=== PATIENT | female | born 1985 | race Caucasian/White ===

== ENCOUNTER → 2021-11-29 12:30 | Outpatient (CLI) | payer BC, SELFPAY ==
--- NOTE | 2021-11-29 12:33 | DI.US.S_ITS ---
PROCEDURE: US OB <= 14 WEEKS FETUS INDICATIONS: SIZE AND DATES. OUTSIDE/PRIOR DATING DATA: Last menstrual period (LMP): September 16, 2021 LMP-based estimated date of delivery (MARTA): June 23, 2022 First dating scan (date and location): November 29, 2021 Estimated date of delivery (MARTA) from first dating scan: June 25, 2022 The calculations are made using the ultrasound MARTA of June 25, 2022 TECHNIQUE: Real-time scanning was performed of the fetus and maternal pelvic organs, with image documentation. Endovaginal scanning was also performed to better visualize the fetus and maternal ovaries. COMPARISON: None. FINDINGS: Embryo: Single living intrauterine identified. pole identified. Verlot-rump length measures 3.4 centimeters corresponding to ultrasound estimated gestational age of 10 weeks 2 days. Heart rate: 165 beats per minute. Maternal organs: Probable left corpus luteal cyst. IMPRESSION: Single living intrauterine with ultrasound estimated gestational age of 10 weeks 2 days corresponding to ultrasound MARTA of June 25, 2022. Dictated by: Aretha Cheung MD, PhD on 11/29/2021 at 14:25 Approved by: Aretha Cheung MD, PhD on 11/29/2021 at 14:27
== END ==
PROVIDERS: PCP Family Medicine; Referring Provider Family Medicine; Visit Provider Family Medicine
DX: Z36.87 Encounter for antenatal screening for uncertain dates (principal); Z3A.10 10 weeks gestation of pregnancy
CPT/HCPCS: 76801; 76817

== ENCOUNTER → 2022-02-14 07:33 | Outpatient (CLI) | payer BC, SELFPAY ==
--- NOTE | 2022-02-14 | DI.US.S_ITS ---
PROCEDURE: US OB >= 14 WEEKS FETUS INDICATIONS: 20 WEEK ANATOMY OUTSIDE/PRIOR DATING DATA: Last menstrual period (LMP): 09/16/2021. LMP-based estimated date of delivery (MARTA): 06/23/2022. First dating scan (date and location): 11/29/2021. Estimated date of delivery (MARTA) from first dating scan: 06/25/2022. TECHNIQUE: Real-time scanning was performed of the fetus, with image documentation and biometric measurements. COMPARISON: None. FINDINGS: General: A single living intrauterine gestation is present. Presentation: Breech. Placenta: Placental position is posterior , without previa. Amniotic fluid index: 13.5 cm, normal range is 5-24 cm. heart rate: 145 beats per minute. Maternal cervical canal: 5.1 cm long. Normal lower limit is 2.5 cm. biometrics: Biparietal diameter: 5.1 cm, 21 week 3 day Head circumference: 19.3 cm, 21 week 4 day Abdominal circumference: 15.7 cm, 20 week 6 day Femur length: 3.4 cm, 20 week 6 day Clinically estimated gestational age: 21 week 2 day Composite gestational age from present scan: 21 week 1 day Estimated weight and percentile: 385 g, 25th percentile Anatomic survey: Neuro: Ventricles are non-dilated at less than 10 mm. Cisterna magna is normal at 3-11 mm. Cerebellum is normal in size and morphology. Nuchal skin fold: Normal at less than 6 mm between 14-21 weeks gestational age. Face: Nose and lips, facial profile are normal. Spine: No evidence for spina bifida. Heart: 4-chambered heart is present, with normal ventricular outflow tracts. Diaphragm: Diaphragm is intact. Stomach: Left-sided stomach is present. Kidneys: No hydronephrosis. Normal is less than 5 mm in 2nd trimester, less than 7 mm in 3rd trimester. Cord: 3-vessel cord has orthotopic insertion. Bladder: Normal in size. Extremities: All 4 extremities identified. IMPRESSION: Single live intrauterine consistent with 21 week 1 day gestation by current ultrasound anatomic survey within normal limits Approved by: Simeon Koch M.D. on 02/18/2022 at 11:26
== END ==
PROVIDERS: PCP Family Medicine; Referring Provider Family Medicine; Visit Provider Family Medicine
DX: Z36.87 Encounter for antenatal screening for uncertain dates (principal); Z3A.10 10 weeks gestation of pregnancy
CPT/HCPCS: 76811

== ENCOUNTER → 2022-05-30 13:34 | Outpatient (ROUT) | payer BC, SELFPAY | PROVIDERS: PCP Family Medicine; Visit Provider Family Medicine | DX: O23.40 Unspecified infection of urinary tract in pregnancy, unspecified trimester (principal) | CPT/HCPCS: 87081; 87147 ==

== ENCOUNTER 2022-06-06 14:55 | Outpatient (CLI) | payer BC, SELFPAY | END 2022-06-06 16:00 | disposition home or self-care (01) | LOC: LABOR 15:21 → OB 06-10 14:13 | PROVIDERS: PCP Family Medicine; Referring Provider Family Medicine; Visit Provider Family Medicine | DX: Z03.71 Encounter for suspected problem with amniotic cavity and membrane ruled out (principal); O47.1 False labor at or after 37 completed weeks of gestation; Z3A.37 37 weeks gestation of pregnancy | CPT/HCPCS: 59025; 84112; G0378; G0379 ==

== ENCOUNTER → 2022-06-11 15:23 | Outpatient (CLI) | payer BC, SELFPAY ==
--- NOTE | 2022-06-11 | DI.US.S_ITS ---
PROCEDURE: US OB LIMITED INDICATIONS: POSITIONING. GROWTH. OUTSIDE/PRIOR DATING DATA: Last menstrual period (LMP): 09/16/2021. LMP-based estimated date of delivery (MARTA): 06/23/2022. First dating scan (date and location): 11/29/2021 [facility]. Estimated date of delivery (MARTA) from first dating scan: 06/25/2022. TECHNIQUE: Real-time scanning was performed of the fetus for biophysical profile, with image documentation. Color and pulse Doppler interrogation was also performed of the umbilical artery near its insertion into the placenta. COMPARISON: [facility], US, US OB >= 14 WEEKS FETUS, 02/14/2022, 9:04. FINDINGS: General: A single living intrauterine gestation is present. Presentation: Breech. Placenta: Not evaluated. Amniotic fluid index: 12.7 cm. Largest pocket 5.9 cm. heart rate: 165 beats per minute. Maternal cervical canal: Not well seen. Biometric measurements: BPD: 8.98 cm, 36 weeks 3 days. 24th percentile HC: 33.7 cm, 38 weeks 4 days. 40th percentile AC: 32.1 cm, 36 weeks 0 days. 11th percentile FL: 6.91 cm, 35 weeks 3 days. 3rd percentile Clinically estimated gestational age: 38 weeks 2 days Estimated gestational age based on today's ultrasound: 37 weeks 4 days. Estimated weight 2873 g +/-425 g. 16th percentile for weight. IMPRESSION: 1. Macario living intrauterine at 37 weeks 4 days based on today's ultrasound. Breech position. 16th percentile for weight. Femur length is in the 3rd percentile. 2. Normal amniotic fluid. We strive to produce accurate, complete, and clear reports of imaging services. To assist us in improving patient care, this report was composed using standard report templates and voice recognition software. Therefore, it may contain abnormal punctuation, insertions and/or omissions. Occasional wrong-word or sound-alike substitutions may occur. Though we review the report and make efforts to correct it, we do recommend that the report be read carefully in proper context to recognize any text inaccuracies. Dictated by: Artur Maurer M.D. on 06/12/2022 at 9:35 Approved by: Artur Maurer M.D. on 06/12/2022 at 9:47
== END ==
PROVIDERS: PCP Family Medicine; Referring Provider Family Medicine; Visit Provider Family Medicine
DX: O26.843 Uterine size-date discrepancy, third trimester (principal); Z3A.37 37 weeks gestation of pregnancy
CPT/HCPCS: 76815

== ENCOUNTER 2022-06-13 14:58 | Outpatient (CLI) | payer BC, SELFPAY | END 2022-06-13 16:06 | disposition home or self-care (01) | LOC: LABOR 16:05 → OB 06-17 17:15 | PROVIDERS: PCP Family Medicine; Referring Provider Family Medicine; Visit Provider Family Medicine | DX: O47.1 False labor at or after 37 completed weeks of gestation (principal); O32.1XX0 Maternal care for breech presentation, not applicable or unspecified; Z3A.38 38 weeks gestation of pregnancy | CPT/HCPCS: 59025; G0378; G0379 ==

== ENCOUNTER 2022-06-16 13:57 | Outpatient (CLI) | payer BC, SELFPAY ==
--- NOTE | 2022-06-16 14:43 | DI.US.S_ITS ---
PROCEDURE: US OB >= 14 WEEKS FETUS INDICATIONS: size and position OUTSIDE/PRIOR DATING DATA: Last menstrual period (LMP): 09/16/2021. LMP-based estimated date of delivery (MARTA): 06/23/2022. First dating scan (date and location): 11/29/2021. Estimated date of delivery (MARTA) from first dating scan: 06/25/2022. TECHNIQUE: Real-time scanning was performed of the fetus, with image documentation and biometric measurements. Endovaginal scanning: Not performed COMPARISON: [facility], OB LIMITED, 06/11/2022, 15:53. [facility], OB >= 14 WEEKS FETUS, 02/14/2022, 9:04. FINDINGS: General: A single living intrauterine gestation is present. Presentation: Breech. Placenta: Placental position is fundal , without previa. Amniotic fluid index: 3.3 cm, normal range is 5-24 cm. Single deepest vertical pocket is 1.7 cm. heart rate: 145 beats per minute. IMPRESSION: 1. Single living intrauterine in breech presentation. 2. Oligohydramnios, amniotic fluid index of 3.3. We strive to produce accurate, complete, and clear reports of imaging services. To assist us in improving patient care, this report was composed using standard report templates and voice recognition software. Therefore, it may contain abnormal punctuation, insertions and/or omissions. Occasional wrong-word or sound-alike substitutions may occur. Though we review the report and make efforts to correct it, we do recommend that the report be read carefully in proper context to recognize any text inaccuracies. Dictated by: Albert Snyder M.D. on 06/16/2022 at 17:05 Approved by: Albert Snyder M.D. on 06/16/2022 at 17:10
--- NOTE | 2022-06-16 17:19 | PM.OBTRLD ---
Visit Information Visit Information Date of evaluation: 06/16/22 Primary OB Provider: Walt Howard On-call OB Provider: Sruthi Manley Comments/Additional reasons for admission: Consult for Dr. Howard for 38 week gestation, breech presentation, decreased amniotic fluid Review of Systems Review of Systems Narrative: Patient states that she was checked for AmniSure several weeks ago and was negative. She has moist underwear but no active leakage of fluid. Good movement. No regular contractions. No headaches, scotomata, epigastric pain. Exam Vital Signs (past 8 hours): Blood pressure 132/87, pulse of 96, temperature 97.4? Evaluation Evaluation Baseline heart rate: 140 Variability: Moderate (11-25) monitor accelerations: Present Monitor Decelerations: Absent Contraction Frequency (minutes): 0 Comments: Discussed ultrasound findings with the patient. Baby is breech and decreased amniotic fluid. Biophysical profile otherwise is good with reactive nonstress test without decelerations. Patient is agreeable to proceed with section. The availability of the OR is recommending we delay her until 845 tomorrow morning. Because of the otherwise reassuring biophysical profile other than decreased amniotic fluid the procedure being performed tomorrow morning in approximately 15 hours is okay. Consent form for the section was reviewed with the patient. Risk of damage to internal structures such as bowel, bladder, ureters that could require additional surgery to repair. Reaction to medication or anesthesia. Risk of infection. Risk of bleeding enough to require blood transfusion which she is agreeable to. Consent form signed and questions answered. Patient will remain NPO after midnight tonight. She is okay to take her medications with a sip of water in the morning. Diagnosis, Plan/Disposition Final Diagnosis (1) Breech presentation with problem: Status: Acute (2) 38 weeks gestation of : Status: Acute (3) Oligohydramnios antepartum: Status: Acute Plan/Disposition Plan: Patient will return in 12 hours to Labor and delivery for scheduled section for 8:45 a.m. OB Disposition: home
== END 2022-06-16 17:10 | disposition home or self-care (01) ==
LOC: LABOR 14:38 → OB 06-19 11:25
PROVIDERS: PCP Family Medicine; Referring Provider Family Medicine; Visit Provider Family Medicine
DX: O41.03X0 Oligohydramnios, third trimester, not applicable or unspecified (principal); O32.1XX0 Maternal care for breech presentation, not applicable or unspecified; Z3A.38 38 weeks gestation of pregnancy
CPT/HCPCS: 59025; 76815; G0378; G0379

== ENCOUNTER 2022-06-17 06:45 | Inpatient (IN) | payer BC, SELFPAY ==
--- NOTE | 2022-06-17 07:50 | PM.OBHP.IH.1 ---
OB HPI Date/Time Date of admission: 06/17/22 Date Patient Seen: 06/17/22 Time Patient Seen: 07:51 History of Present Condition Chief complaint: INPT Estimated Gestational Age (weeks): 39+1 : 1 Para: 0 care: good care, initiated at week # (12), number of visits (12) and pounds weight gain (25) Dating criteria OB: LMP confirmed by 1st trimester US Ultrasounds: normal 1st trimester US and normal mid trimester US Obstetrical complications: other (breech, oligohydramnios) Medical complications OB: none Indications Operative indications ( section): breech presentation (oligo) Preadmission Labs Last OB Lab Results: Blood Type A Positive 06/17/22 07:59 Antibody Screen Negative 06/17/22 07:59 Hematocrit 26.6 % (36-46) L 06/18/22 06:00 Hemoglobin 9.3 g/dL (12.0-16.0) L 06/18/22 06:00 -: Urine: unknown External Labs Blood type OB HPI: A (+) positive HCT: 37 -: Antibody screen: negative, HBsAG: negative, HIV: negative, RPR/VDLR: negative, Chlamydia screen: negative, Gonorrhea screen: negative, GBS status: unknown and Urine: unknown -: Rubella: immune and Varicella: unknown HCAB: negative PAP: Normal Evaluation Evaluation Baseline heart rate: 125 Variability: Moderate (11-25) monitor accelerations: Present Monitor Decelerations: Absent Status: Category l PFSH Medical History (Updated 06/17/22 @ 07:57 by Janet Garcia MD) Periodontal disease, unspecified Surgical History (Updated 06/17/22 @ 07:57 by Janet Garcia MD) [place] teeth extracted Social History Smoking Status: Never smoker Meds Home Medications and Allergies Home Medications Medication Instructions Recorded Confirmed Type vit no.133-ferrous See Rx Instructions .Route .COMPLEX 06/17/22 06/17/22 History fumarate 28 mg-folic acid 800 mcg tablet () sertraline 100 mg tablet See Rx Instructions .Route .COMPLEX 06/17/22 06/17/22 History Allergies Allergy/AdvReac Type Severity Reaction Status Date / Time No Known Drug Allergies Allergy Verified 06/17/22 10:45 OB Exam Narrative Exam Narrative: Generally: Patient is sitting up in bed, no acute distress Lungs: Clear to auscultation bilaterally Cardiovascular: Regular rate and rhythm Fundal height: 39 cm Estimated weight: 7 1/2 lb Extremities: Trace edema Objective Labs Result Diagrams: 06/18/22 06:00 Assessment and Plan Assessment and Plan Assessment and Plan narrative: Assessment: 37-year-old 1 para 0 at 39-,1/7 weeks gestation with persistent breech presentation Plan: Primary low-transverse section The risks, benefits, and alternatives to the procedure were explained to the patient. The risks including bleeding, infection, injury to the bowel, bladder, or ureters. She understands these risks and agrees to proceed. A full par Q was held and consent form was signed. Time Spent with Patient Total time spent with greater than 50% in coordination of care (as documented) at patient's floor/unit and/or counseling patient:: 15-24 minutes
--- NOTE | 2022-06-17 07:58 | PM.PREOP ---
Pre-operative Note COVID-19 COVID-19 status: Negative Result date/Date tested (Pos, Neg/Pending): 06/17/22 Criteria for continued procedure: Non-surgical alternatives not available or appropriate per current SOC Interval Note History & Physical reviewed/Exam performed by Physician: Yes Changes to H&P: No H&P completed within 30 days and has changed as indicated here:: 06/17/22
[2022-06-17] MEDS: LACTATED RINGERS 1,000 ML 1000 ML IV (07:59)
[2022-06-17 08:19] LABS: Add Manual Diff / Slide Review NO; Basophils Absolute Auto 0 /uL (0-100); Basophils Percent Auto 0.4 % (0-2); Eosinophils Absolute Auto 100 /uL (0-450); Eosinophils Percent Auto 0.7 % (2-4); Hematocrit 34.3 % (36-46); Hemoglobin 12.1 g/dL (12.0-16.0); Lymphocytes Absolute Auto 1300 /uL (1100-4500); Mean Corpuscular HGB Conc 35.3 % (30-36); Mean Corpuscular Hemoglobin 31.4 PG (26-34); Mean Corpuscular Volume 88.9 fL (80-100); Monocytes Absolute Auto 400 /uL (0-900); Monocytes Percent Auto 5.9 % (3-14); Neutrophils Absolute Auto 5600 /uL (1500-7000); Platelet Count 186 X10^3/uL (150-400); Red Blood Cell Count 3.86 X10^6/uL (4.0-5.2); Red Cell Distribution Width 13.7 % (11.6-14.8); White Blood Cell Count 7.4 X10^3/uL (4.5-11.0)
[2022-06-17 08:28] LABS: COVID19 -Nasal RAPID Negative (Negative)
[2022-06-17 08:31] VITALS: BP 137/91
--- NOTE | 2022-06-17 08:42 | SUR.OPER ---
Supine on Padded OR bed, head on pillow, safety belt at thigh, arms secured on padded arm boards at <90 degrees abduction. Bump under right buttock. Legs uncrossed with pillow under knees, gel pad to heels, tape over blanket to lower legs.
[2022-06-17] MEDS: CEFAZOLIN 2 GM/100 ML PREMIX 100 ML IV (09:20)
--- NOTE | 2022-06-17 09:50 | PC.NURSE ---
Addendum entered by Casandra Arora R.N. 06/17/22 09:56: erroneous entry-Disregard! Original Note: This RN in pt room @0920 Baby girl resting comfortably on wallaby/bili blanket with bank lights above X2-Temp 98.4 aux-HR 130-Resps 34-Mom wanting to take a nap as she states, she cluster fed all night. This RN made nest with warm blankets for baby. baby fed at 0800 for 15min and again @0830 15min This RN Reported serum Bili results to MOB., Dr. Mcgrath to return to Unit to assess baby for D/C @lunchtime.
--- NOTE | 2022-06-17 09:55 | SUR.OPER ---
male at 0946
--- NOTE | 2022-06-17 10:01 | SUR.OPER ---
cord blood and placenta to L&D
--- NOTE | 2022-06-17 10:06 | SUR.OPER ---
apgars 8&9
--- NOTE | 2022-06-17 10:17 | SUR.OPER ---
450 amniotic fluid and blood per suction
--- NOTE | 2022-06-17 10:26 | P.OP_ITS ---
Operative Date/Time/Diagnoses Date of procedure: 06/17/22 Time of procedure: 10:26 Pre-op diagnosis: Estimated gestational age of 39 weeks Breech presentation Oligohydramnios Post-op diagnosis: same Procedure & Clinicians Procedure: Primary low-transverse section Same procedure as scheduled: Yes Indications: Estimated gestational age of 39 weeks Breech presentation Oligohydramnios Surgeon: Janet Garcia Click Yes if Unassisted: No Crime Prevention Police Officer: Walt Howard Reason for Crime Prevention Police Officer: The health care legal assistant was necessary to retract upon entry into the abdomen and uterus. He assisted with fundal pressure on delivery of the breech . He assisted with retraction and clipping of suture upon closure of the uterus and abdomen. He closed the contralateral fascia. Anesthesia Type: Spinal (With Duramorph) Operative Notes Findings: Live male infant in the complete breech presentation Normal uterus, tubes, and ovaries Decreased amniotic fluid volume Closure Type: primary Specimen(s): cord blood and placenta Intraoperative meds administered: Acetaminophen, Duramorph, Ketorolac and Pitocin Applied: Catheter (To continuous drainage) Estimated Blood Loss (mL): 450 Blood products transfused: none Procedure in detail: The patient was taken to the operating room where she was placed in the seated position. Spinal anesthesia with Duramorph was administered. She was then placed in the dorsal supine position with a leftward tilt. She was prepped and draped in the usual sterile fashion. A timeout was performed. After spinal analgesia was found to be adequate, a Pfannenstiel skin incision was made 2 fingerbreadths above the pubic symphysis and carried through to the underlying layer fascia. The fascia was nicked in the midline, and the incision extended bilaterally with the Bahena scissors. The superior aspect of the fascial incision was grasped with a Herrin clamps, elevated, and the underlying rectus muscles d issected off sharply and bluntly. Attention was then turned to the inferior aspect of this incision which in a similar fashion was grasped with a Herrin clamps, elevated, and the underlying rectus muscles dissected off sharply and bluntly. The rectus muscles were in the midline. The peritoneum was identified, grasped between 2 hemostats, and entered sharply with the Metzenbaum scissors. This incision was extended superiorly and inferiorly with good visualization of the bladder. The bladder blade was inserted. The vesicouterine peritoneum was identified, grasped with the pickup, and entered sharply with the Metzenbaum scissors. This incision was extended bilaterally, and the bladder flap was created digitally. The bladder blade was reinserted. The lower uterine segment was incised in a transverse fashion with the scalpel. Upon entering the amniotic sac there was a small amount of clear amniotic fluid. The was delivered by total breech extraction. The cord was double clamped and cut after 1 minute. The infant was handed off to waiting RN and RT. The placenta was expressed. The uterus was cleared of all clots and debris. The uterine incision was repaired with #1 chromic in a running interlocking fashion, and a second layer the same suture was used for an imbricating layer. Hemostasis was achieved. The tubes and ovaries were examined and were found to be normal. The gutters were cleared of all clots and debris. The bladder flap was reapproximated using 2-0 Vicryl in a running fashion. The parietal peritoneum was closed using 2-0 Vicryl in a running fashion. The fascia was reapproximated using 0 Vicryl in a running fashion. The subcutaneous layer was copiously irrigated with warm normal saline. 5 simple interrupted sutures of 3- 0 Vicryl were placed to reapproximate the subcutaneous layer. The skin was closed with 4-0 Monocryl in a subcuticular fashion. Steri-Strips were placed. An Aquacel dressing was placed. The uterus was expressed of a small amount of old blood. Sponge, lap, and instrument counts were correct x-2. The patient tolerated the procedure well, and was taken to PACU in stable condition. Complications: none [place] Baby 1: Infant Gender: Male Presentation: breech Details: complete Placental Delivery Description: Expressed Cord Vessel Description: 3 Vessels and Clamped/Cut (After 1 minute) score (1 min): 8 score (5 min): 9 weight: 6 lb 15.3 oz Post-operative Condition: stable Disposition: PACU Aftercare: routine postop
[2022-06-17 10:35] VITALS: BP 123/80; PULSE 80; RESP 20; TEMP 36.4; O2SAT 99
[2022-06-17 10:40] VITALS: BP 120/74; PULSE 70; RESP 15; O2SAT 92
[2022-06-17 10:45] VITALS: BP 122/75; PULSE 70; RESP 12; O2SAT 92
[2022-06-17 10:50] VITALS: BP 131/80; PULSE 76; RESP 12; TEMP 36.3; O2SAT 92
--- NOTE | 2022-06-17 11:10 | SUR.PHASEI ---
Pt to PACU with Apryl RN, baby and dad. Baby to chest by Apryl Mclean. Transferred to Center in bed by this RN. SBAR report to Apryl Mclean.
[2022-06-17] MEDS: LACTATED RINGERS 1,000 ML 100 ML IV (14:00)
[2022-06-17 14:29] VITALS: TEMP 37.1
[2022-06-17] MEDS: KETOROLAC 30 MG/ML VIAL IV ×2 (14:29→20:33)
[2022-06-17] MEDS: ACETAMINOPHEN 325 MG TABLET 650 MG PO (19:47)
[2022-06-18] MEDS: ACETAMINOPHEN 325 MG TABLET 650 MG PO ×4 (01:18→19:02)
[2022-06-18] MEDS: KETOROLAC 30 MG/ML VIAL IV (05:29)
[2022-06-18 06:16] LABS: Hematocrit 26.6 % (36-46); Hemoglobin 9.3 g/dL (12.0-16.0)
[2022-06-18 08:00] VITALS: BP 109/77; PULSE 69; RESP 16; TEMP 37
[2022-06-18] MEDS: DOCUSATE 100 MG CAPSULE 200 MG PO (09:08)
[2022-06-18] MEDS: PRENATAL VIT,CALC/IRON/FOLIC 1 TABLET 1 TAB PO (09:08)
--- NOTE | 2022-06-18 10:41 | PM.OBPN.1 ---
Subjective - OB Subjective Patient comments: no complaints, pain well controlled and tolerating diet baby status: doing well and nursing well feeding status: exclusively breast feeding Date Patient Seen: 06/18/22 Time Patient Seen: 10:41 Interval history: Pain is under better control. She has not passed any flatus. The catheter was removed last night and she has been able to void without the catheter. She has not showered as of yet. is going well. She is tolerated a diet. Exam Vital Signs (past 8 hours): Oxygen Delivery Method Room Air Narrative Exam Narrative: Generally: Patient is sitting up in bed, no acute distress Lungs: Clear to auscultation bilaterally Cardiovascular: Regular rate and rhythm Fundus: Firm at U -1 Incision: Clean dry and intact with Aquacel dressing Extremities: Trace edema, negative Homans Objective Labs Result Diagrams: 06/18/22 06:00 Labs: Laboratory Results - last 24 hr 06/18/22 06:00 Hgb 9.3 L Hct 26.6 L Assessment & Plan Plan day: 1 plan OB: routine postop care Time Spent With Patient Time: Total time spent is greater than 50% in coordination of care (as documented) at patient's floor/unit and/or counseling patient: Time with patient: less than 15 minutes
[2022-06-18] MEDS: IBUPROFEN 600 MG TABLET PO ×2 (11:45→19:03)
[2022-06-18] MEDS: OXYCODONE IR 5 MG TABLET PO (22:31)
[2022-06-19] MEDS: IBUPROFEN 600 MG TABLET PO ×2 (00:21→08:48)
[2022-06-19] MEDS: ACETAMINOPHEN 325 MG TABLET 650 MG PO ×2 (00:22→08:49)
[2022-06-19] MEDS: OXYCODONE IR 5 MG TABLET PO (05:58)
[2022-06-19] MEDS: DOCUSATE 100 MG CAPSULE 200 MG PO (08:48)
[2022-06-19] MEDS: PRENATAL VIT,CALC/IRON/FOLIC 1 TABLET 1 TAB PO (08:48)
--- NOTE | 2022-06-29 18:25 | P.DS_ITS ---
Discharge Providers Provider Date of admission: 06/17/22 06:45 Discharge Date: 06/19/22 Primary care physician: Walt Howard MD Consults: 06/17/22 10:55 Consult to [facility] Routine Comment: Discharge provider: Janet Garcia MD Summary Hospital Course Date Patient Seen: 06/19/22 Time Patient Seen: 09:30 Diagnoses: 39 1/7 weeks gestatiion Breech presentation Oligohydramnios Primary C section Hospital Course: Patient is a 37-year-old 1 para 1 who presented on June 17, 2022 for a scheduled primary section due to breech presentation and oligohydramnios at 39-,1/7 weeks gestation. She underwent a primary section without complication. Her postoperative course was unremarkable. Her Rueda catheter was removed and she was able to void without the catheter. She tolerated a diet. She was ambula ting independently. Pain was well controlled. No nausea and vomiting. She was discharged home on postop day #2. Peripartum Data Infant Delivery Method: Section (breech, oligo) Laceration Description: None Procedures: Spinal anesthesia Primary low-transverse section complications: none [place] 1: Gender: Male Disposition of : home Status at Discharge Cognitive/behavioral status at discharge: oriented Functional status at discharge: independent ambulation Overall status at discharge: patient is progressing back to baseline Time Spent with Patient Time attestation: Total time spent providing and/or coordinating discharge services: Time spent: Less than 30 minutes Objective Labs Result Diagrams: 06/18/22 06:00 Exam Vital Signs (past 8 hours): Oxygen Delivery Method Room Air Narrative Exam Narrative: Generally: Patient is sitting up in bed, holding infant, no acute distress Lungs: Clear to auscultation bilaterally Cardiovascular: Regular rate and rhythm Fundus: Firm at U-1 Incision: Clean dry and intact with Aquacel dressing Extremities: Trace edema, negative Homans Discharge Plan Discharge Plan Patient Disposition: Home Provider Discharge Comment: Call with fever, chills, redness or drainage around the incision, or bleeding vaginally more than a pad in an hours Discharge orders & Medications Prescriptions: New oxycodone 5 mg tablet 5 mg PO Q4H PRN (Reason: pain) Qty: 20 0RF Continued sertraline 100 mg tablet See Rx Instructions .ROUTE .COMPLEX Rx Instructions: Take 1 tablet by mouth once a day 28-800 mg-mcg tablet See Rx Instructions .ROUTE .COMPLEX Rx Instructions: Take 1 tablet by mouth once a day Follow up/Referrals: Janet Garcia MD [Physician] - 06/24/22 3:15 pm (Appointment on Sunday, June 24 at 3:15 pm) Diet/Activity/Treatments Diet: Regular Activity: No heavy lifting Skin/Wound/Dressing Care Report to your healthcare provider any signs of infection, such as:: chills, fever, increased pain, unusual drainage and unusual redness Dressing: Do not remove Visit Report/Discharge Packet Instructions: DI for , DI for Prescription Opioid Use Discharge Data Primary Care Provider: Walt Howard
== END 2022-06-19 11:36 | disposition home or self-care (01) | DRG 787 ==
PROVIDERS: Admitting Provider Obstetrics & Gynecology; PCP Family Medicine; Referring Provider Obstetrics & Gynecology; Visit Provider Obstetrics & Gynecology
PROC: 10D00Z1 Extraction of Products of Conception, Low, Open Approach (ICD-10-PCS; CPT 59514; principal; 2022-06-17 09:15)
DX: O64.8XX0 Obstructed labor due to other malposition and malpresentation, not applicable or unspecified (principal); O41.03X0 Oligohydramnios, third trimester, not applicable or unspecified; Z3A.39 39 weeks gestation of pregnancy; Z37.0 Single live birth; Z20.822 Contact with and (suspected) exposure to COVID-19
CPT/HCPCS: 36415; 59050; 59514; 85014; 85018; 85025; 86850; 86900; 86901; 87635; 99222; C9803; J0690; J1100; J1885; J2250; J2274; J2405; J2590; J3010

== ENCOUNTER → 2022-08-11 11:04 | Outpatient (CLI) | payer BC, SELFPAY ==
[2022-08-12 07:36] LABS: Candida species Negative (Negative); Gardnerella vaginalis Positive (Negative); Trichomoas vaginalis Negative (Negative)
== END ==
PROVIDERS: PCP Family Medicine; Visit Provider Physician Assistant Medical
DX: N89.8 Other specified noninflammatory disorders of vagina (principal)
CPT/HCPCS: 87480; 87510; 87660